=== PATIENT | male | born 1995 | race Caucasian/White ===

== ENCOUNTER 2018-11-26 23:47 | Emergency (ER) | payer OTHER ==
[~2018-11-26] VITALS: Ht 182.9 cm; Wt 61.7 kg
[2018-11-26 23:49] VITALS: Ht 182.9 cm; Wt 61.7 kg
[2018-11-27 01:36] VITALS: BP 113/67
== END 2018-11-27 01:36 | disposition home or self-care (01) ==
LOC: ED 23:47
DX: S06.0X0A Concussion without loss of consciousness, initial encounter (principal); J45.909 Unspecified asthma, uncomplicated; Z88.0 Allergy status to penicillin; W22.8XXA Striking against or struck by other objects, initial encounter; Y93.89 Activity, other specified; Y92.89 Other specified places as the place of occurrence of the external cause; Y99.8 Other external cause status